=== PATIENT | male | born 1940 | race Caucasian/White ===

== ENCOUNTER 2019-05-08 12:45 | Inpatient (IN) | payer MEDICARE ==
[~2019-05-08] VITALS: Ht 177.8 cm; Wt 96.7 kg
--- NOTE | 2019-05-08 12:55 | NUR ---
BIB [facility]. Two days ago, states patient reported generalized fatigue and "not feeling well". The next day, he slept most of the day. Started this AM he could not walk and became nearly no verbal. In ED, oriented to self and place. Otherwise, difficulty following commands well enough to perform neuro exam. +decorticate posturing RUE. EKG done. Placed on NIBP, pulse ox and cardiac cath lab manager. at bedside. Will continue to monitor.
--- NOTE | 2019-05-08 13:20 | NUR ---
Placed on droplet precautions for R/O meningitis.
[2019-05-08] MEDS ORDERED: SODIUM CHLORIDE 0.9% 1,000ML IVBOLUS ONE ×2 (13:30→16:00)
[2019-05-08] MEDS ORDERED: ACETAMINOPHEN 650 MG SUPP PR ONE (13:30)
--- NOTE | 2019-05-08 13:37 | NUR ---
TASK RN: STRAIGHT CATHERIZED FOR 600ML OF CONCENTRATED URINE-SAMPLE SENT TO LAB LAB AT BEDSIDE-OBTAINED BLOOD CULTURES ONCE BLOOD/URINE COMPLETE- PATIENT TO CT SCAN
[2019-05-08] MEDS ORDERED: ACETAMINOPHEN 325 MG SUPP ONE (13:40)
--- NOTE | 2019-05-08 13:50 | NUR ---
Tylenol admin. Patient had BM x 1. Patient cleaned and linens changed. Repositioned for comfort.
[2019-05-08 13:51] LABS: BASOPHILS # (AUTO) 0.02 x10^3/uL (0-0.1); BASOPHILS % (AUTO) 0 % (0-1); EOSINOPHILS % (AUTO) 0 % (1-7); LYMPHOCYTES # (AUTO) 0.48 x10^3/uL (1-3.4); LYMPHOCYTES % (AUTO) 10 % (22-44); MD NO; MEAN CORPUSCULAR HEMOGLOBIN 32.4 pg (27.5-34.5); MEAN CORPUSCULAR HGB CONC 33.9 g/dL (33.2-36.2); MEAN CORPUSCULAR VOLUME 95.5 fL (81-97); MEAN PLATELET VOLUME 7.9 fL (7.4-10.4); MONOCYTES # (AUTO) 0.18 x10^3/uL (0.2-0.8); MONOCYTES % (AUTO) 4 % (2-9); NEUTROPHILS # (AUTO) 4.19 x10^3/uL (1.8-6.8); NEUTROPHILS % (AUTO) 86 % (42-75); PLATELET COUNT 183 x10^3/uL (130-400); RED BLOOD COUNT 5.17 x10^6/uL (4.38-5.82)
[2019-05-08 13:55] LABS: INTERNATIONAL NORMALIZED RATIO 1.02 (0.93-1.1); PROTHROMBIN TIME 10.7 Seconds (9.6-11.5)
[2019-05-08 13:58] LABS: MICROSCOPIC INDICATED
[2019-05-08 13:59] LABS: ALBUMIN 3.7 g/dL (3.4-5.0); ANION GAP 9 mmol/L (5-15); CALCIUM 8.7 mg/dL (8.5-10.1); CHLORIDE 96 mmol/L (98-107)
[2019-05-08 13:59] LABS: CULTURE INDICATED? YES
[2019-05-08 14:02] LABS: ALANINE AMINOTRANSFERASE 221 U/L (12-78); ALKALINE PHOSPHATASE 58 U/L (45-117); CREATININE 1.82 mg/dL (0.7-1.3); TOTAL PROTEIN 7.7 g/dL (6.4-8.2)
[2019-05-08] MEDS ORDERED: EMPA10TA PO (14:10)
[2019-05-08] MEDS ORDERED: GLIP5TAB10 PO (14:10)
[2019-05-08] MEDS ORDERED: DEXAMETHASONE 4 MG/ML, 5ML ONE (14:24)
[2019-05-08] MEDS ORDERED: CEFTRIAXONE PMX 1GM/50ML 50 ML ONE (14:24)
--- NOTE | 2019-05-08 14:28 | NUR ---
Rocephin and decadron admin. No other needs at this time.
[2019-05-08] MEDS ORDERED: VANCOMYCIN PER PHARMACY MC PRN ×2 (14:30→16:30)
[2019-05-08] MEDS ORDERED: VANCOMYCIN 1,800 MG in SODIUM CHLORIDE 0.9% 250 ML IV ONE (14:30)
[2019-05-08] MEDS ORDERED: AMPICILLIN 2 GM in SODIUM CHLORIDE 0.9% 100 ML IV SCH (14:30)
[2019-05-08] MEDS ORDERED: DEXAMETHASONE 4 MG/ML, 1ML IVPush ONE (14:30)
[2019-05-08] MEDS ORDERED: PHARMACOKINETIC CONSULTATION MC ONE (14:30)
[2019-05-08] MEDS ORDERED: CEFTRIAXONE PMX 1GM/50ML 50 ML IV ONE (14:30)
--- NOTE | 2019-05-08 15:02 | NUR ---
TASK RN: RECTAL TEMP OBTAINED. SET UP FOR LP AT BEDSIDE AND CONSENT SIGNED BY . PT AWAKE, WILL MAKE EYE CONTACT WITH RN, RESPONSIVE TO DISCOMFORT. PT W NO VERBAL COMMUNICATION AND IS NOT FOLLOWING COMMANDS. BP/SPO2/ECG MONITORING IN PLACE. SO AT BEDSIDE AND UPDATED TO POC.
[2019-05-08] MEDS ORDERED: FENTANYL PF 100 MCG/2ML ONE ×2 (15:23→17:26)
[2019-05-08] MEDS ORDERED: FENTANYL PF 100 MCG/2ML IVPush ONE (15:30)
--- NOTE | 2019-05-08 16:10 | NUR ---
Unable to obtain LP at bedside. Plan is for LP in IR.
[2019-05-08] MEDS ORDERED: LORazepam 2 MG/ML, 1ML ONE (16:20)
[2019-05-08] MEDS ORDERED: CEFTRIAXONE PMX 2GM/50ML 50 ML IV SCH (16:30)
[2019-05-08] MEDS ORDERED: ONDANSETRON 2MG/ML, 2ML IVPush PRN (16:30)
[2019-05-08] MEDS ORDERED: BISACODYL 10 MG SUPP PR PRN (16:30)
[2019-05-08] MEDS ORDERED: LABETALOL 5MG/ML, 20ML IVPush PRN (16:30)
[2019-05-08] MEDS ORDERED: LORazepam 2 MG/ML, 1ML IVPush ONE (16:30)
[2019-05-08] MEDS ORDERED: POLYETHYLENE GLYCOL 17 GM PACKET PO PRN (16:30)
--- NOTE | 2019-05-08 16:40 | NUR ---
Patient pulling at lines and becoming more agitated. Ativan admin. US at bedside. Second IV started.
--- NOTE | 2019-05-08 17:00 | NUR ---
Heparin held for LP
[2019-05-08] MEDS ORDERED: LIDOCAINE 1%, 10ML ONE (17:11)
--- NOTE | 2019-05-08 17:32 | NUR ---
Patient to IR for LP.
[2019-05-08] MEDS ORDERED: MIDAZOLAM 1 MG/ML, 2ML ONE (17:46)
--- NOTE | 2019-05-08 18:51 | NUR ---
PT TAKEN TO RADIOLOGY AT APPROX 1730 FOR A SPINAL TAP UNDER IMAGING PERFORMED BY DR PHILIP TYLER PT PLACED PRONE ON XR TABLE DR REQUESTED A TOTAL OF 1.5 OF VERSED AND 50 OF FENT TO BE GIVEN DURING PROCEDURE PT REMAINED CONSCIOUS RESONDING TO VERBAL THROUGH OUT PROCEDURE CUT OFF WORKER INPLACE AND SATS REMAINED > 95% DURING THE TAP HEART RATE CONTINUED IN THE 80 THE ENTIRE TIME PT RETURNED TO THE ED PT CLEANED OF STOOL IN XR
--- NOTE | 2019-05-08 18:54 | NUR ---
Back from IR and transferred to CCU.
[2019-05-08 19:08] LABS: GLUCOSE, CSF 129 mg/dL (40-80); TOTAL PROTEIN,CSF 89 mg/dL (15-45)
--- NOTE | 2019-05-08 19:18 | NUR ---
WRITTEN ORDERS FOR FENT AND VERSED REC FORM DR TYLER UNABLE TO PLACE IN COMPUTOR DR TYLER NOT IN THE SYSTEM WRITTEN ORDERS SENT TO CCU THIS REPORTED TO CCU RN
[2019-05-08] MEDS ORDERED: PHARMACOKINETIC MONITORING MC PRN (19:30)
[2019-05-08] MEDS: SODIUM CHLORIDE 0.9% 1,000 ML IV SCH (19:47)
[2019-05-08] MEDS: PIPERACILLIN/TAZO/PMX 3.375GM 50 ML IV SCH (19:48)
[2019-05-08] MEDS: HEPARIN 5,000 UNITS/ML, 1ML SQ SCH (19:48)
[2019-05-08] MEDS: ACYCLOVIR 900 MG in SODIUM CHLORIDE 0.9% 250 ML IV SCH (20:17)
[2019-05-08] MEDS ORDERED: INSULIN LISPRO 100 UNITS/ML, PEN SQ-INSULIN SCH (21:00)
[2019-05-08] MEDS: CEFTRIAXONE PMX 2GM/50ML 50 ML IV SCH (21:16)
[2019-05-08] MEDS ORDERED: MAGNESIUM SULFATE PMX 2GM/50ML 50 ML IV ONE (21:30)
[2019-05-09] MEDS: PIPERACILLIN/TAZO/PMX 3.375GM 50 ML IV SCH ×4 (02:05→20:48)
[2019-05-09] MEDS: INSULIN LISPRO 100 UNITS/ML, PEN SQ-INSULIN SCH ×4 (02:12→20:49)
[2019-05-09] MEDS: SODIUM CHLORIDE 0.9% 1,000 ML IV SCH ×3 (03:55→20:51)
[2019-05-09] MEDS: ACYCLOVIR 900 MG in SODIUM CHLORIDE 0.9% 250 ML IV SCH ×2 (03:55→12:00)
[2019-05-09] MEDS: HEPARIN 5,000 UNITS/ML, 1ML SQ SCH ×3 (03:56→20:49)
[2019-05-09 04:31] LABS: ALANINE AMINOTRANSFERASE 248 U/L (12-78); ALBUMIN 2.8 g/dL (3.4-5.0); ANION GAP 7 mmol/L (5-15); CALCIUM 7.8 mg/dL (8.5-10.1); CHLORIDE 106 mmol/L (98-107); CREATININE 1.48 mg/dL (0.7-1.3)
[2019-05-09 04:34] LABS: ALKALINE PHOSPHATASE 46 U/L (45-117); BILIRUBIN,TOTAL 0.6 mg/dL (0.2-1.0); TOTAL PROTEIN 6.2 g/dL (6.4-8.2)
[2019-05-09 04:58] LABS: MEAN CORPUSCULAR HEMOGLOBIN 32.7 pg (27.5-34.5); MEAN CORPUSCULAR VOLUME 96.1 fL (81-97); MEAN PLATELET VOLUME 8.1 fL (7.4-10.4); PLATELET COUNT 158 x10^3/uL (130-400); RED BLOOD COUNT 4.73 x10^6/uL (4.38-5.82); RED CELL DISTRIBUTION WIDTH 13.1 % (9.4-14.8)
[2019-05-09 05:19] LABS: BASOPHILS # (AUTO) 0.01 x10^3/uL (0-0.1); BASOPHILS % (AUTO) 0 % (0-1); EOSINOPHILS % (AUTO) 0 % (1-7); LYMPHOCYTES # (AUTO) 0.55 x10^3/uL (1-3.4); LYMPHOCYTES % (AUTO) 20 % (22-44); MD SCAN; MONOCYTES # (AUTO) 0.13 x10^3/uL (0.2-0.8); MONOCYTES % (AUTO) 5 % (2-9); NEUTROPHILS # (AUTO) 2.08 x10^3/uL (1.8-6.8); NEUTROPHILS % (AUTO) 75 % (42-75)
[2019-05-09] MEDS: SENNA/DOCUSATE TABLET PO SCH (07:38)
[2019-05-09] MEDS ORDERED: ACETAMINOPHEN 650 MG SUPP PR PRN (09:30)
[2019-05-09] MEDS: CEFTRIAXONE PMX 2GM/50ML 50 ML IV SCH ×2 (10:16→20:48)
[2019-05-09] MEDS ORDERED: VANCOMYCIN 1,900 MG in SODIUM CHLORIDE 0.9% 250 ML IV SCH (10:30)
[2019-05-09] MEDS ORDERED: VANCOMYCIN 1,700 MG in SODIUM CHLORIDE 0.9% 250 ML IV SCH (16:00)
[2019-05-09] MEDS: ACETAMINOPHEN 325 MG TABLET PO PRN ×2 (16:05→23:30)
[2019-05-09] MEDS: SODIUM CHLORIDE 0.9% IVPB SCH (17:14)
[2019-05-09] MEDS: GANCICLOVIR IVPB SCH (17:14)
[2019-05-09] MEDS ORDERED: FAMOTIDINE 20 MG/2 ML IVPush SCH (22:00)
[2019-05-09] MEDS ORDERED: PHARMACY MAY ADJ FOR RENAL FX MC PRN (22:00)
[2019-05-10 02:18] LABS: CLOSTRIDIUM DIFFICILE ANTIGEN NEGATIVE; CLOSTRIDIUM DIFFICILE TOXIN NEGATIVE (Negative)
[2019-05-10] MEDS: PIPERACILLIN/TAZO/PMX 3.375GM 50 ML IV SCH ×4 (02:44→20:32)
[2019-05-10] MEDS: INSULIN LISPRO 100 UNITS/ML, PEN SQ-INSULIN SCH ×4 (03:00→20:44)
[2019-05-10 04:26] LABS: BASOPHILS % (AUTO) 0 % (0-1); EOSINOPHILS % (AUTO) 0 % (1-7); LYMPHOCYTES # (AUTO) 0.69 x10^3/uL (1-3.4); LYMPHOCYTES % (AUTO) 22 % (22-44); MD NO; MEAN CORPUSCULAR HEMOGLOBIN 32.7 pg (27.5-34.5); MEAN CORPUSCULAR VOLUME 96.3 fL (81-97); MONOCYTES # (AUTO) 0.14 x10^3/uL (0.2-0.8); MONOCYTES % (AUTO) 4 % (2-9); NEUTROPHILS # (AUTO) 2.35 x10^3/uL (1.8-6.8); NEUTROPHILS % (AUTO) 74 % (42-75); PLATELET COUNT 106 x10^3/uL (130-400); RED CELL DISTRIBUTION WIDTH 13.3 % (9.4-14.8)
[2019-05-10] MEDS: SODIUM CHLORIDE 0.9% IVPB SCH ×2 (04:27→16:24)
[2019-05-10] MEDS: GANCICLOVIR IVPB SCH ×2 (04:27→16:24)
[2019-05-10] MEDS: SODIUM CHLORIDE 0.9% 1,000 ML IV SCH (04:27)
[2019-05-10 04:28] LABS: ALBUMIN 2.6 g/dL (3.4-5.0); ANION GAP 7 mmol/L (5-15); CALCIUM 7.5 mg/dL (8.5-10.1); CHLORIDE 112 mmol/L (98-107)
[2019-05-10] MEDS: HEPARIN 5,000 UNITS/ML, 1ML SQ SCH ×3 (04:28→20:32)
[2019-05-10 04:30] LABS: ALANINE AMINOTRANSFERASE 305 U/L (12-78); ALKALINE PHOSPHATASE 41 U/L (45-117); BILIRUBIN,TOTAL 0.3 mg/dL (0.2-1.0); CREATININE 1.29 mg/dL (0.7-1.3); TOTAL PROTEIN 5.8 g/dL (6.4-8.2); VANCOMYCIN,RANDOM 14.3 mcg/mL
[2019-05-10] MEDS: SENNA/DOCUSATE TABLET PO SCH (09:00)
[2019-05-10] MEDS ORDERED: SODIUM BICARBONATE 8.4% 100 MEQ in DEXTROSE 5% 1,000 ML IV SCH (10:00)
[2019-05-10] MEDS ORDERED: SENNA/DOCUSATE TABLET PO PRN (10:00)
[2019-05-10] MEDS: ACETYLCYSTEINE 600 MG CAPSULE PO SCH ×3 (10:02→21:00)
[2019-05-10] MEDS ORDERED: GADOTERATE 10 MMOL/20 ML SYR ONE (11:47)
[2019-05-10 14:58] LABS: % IRON SATURATION 15 % (20-55); ANION GAP 8 mmol/L (5-15); CALCIUM 6.9 mg/dL (8.5-10.1); CHLORIDE 108 mmol/L (98-107); IRON LEVEL 32 mcg/dL (65-175); TOTAL IRON BINDING CAPACITY 219 mcg/dL (250-450)
[2019-05-10 15:00] LABS: CREATINE KINASE, TOTAL 479 U/L (39-308)
[2019-05-10] MEDS: MORPHINE SULFATE 4 MG/ML, 1ML IVPush PRN (15:16)
[2019-05-10] MEDS: NS + 40MEQ KCL 1,000 ML IV SCH (19:50)
[2019-05-10] MEDS: FAMOTIDINE 20 MG/2 ML IVPush SCH (20:32)
[2019-05-10] MEDS: IBUPROFEN 800 MG TABLET PO PRN ×2 (20:32→22:45)
[2019-05-11] MEDS: PIPERACILLIN/TAZO/PMX 3.375GM 50 ML IV SCH ×4 (02:35→20:23)
[2019-05-11] MEDS: INSULIN LISPRO 100 UNITS/ML, PEN SQ-INSULIN SCH ×5 (02:40→20:28)
[2019-05-11] MEDS: NS + 40MEQ KCL 1,000 ML IV SCH ×3 (02:42→21:21)
[2019-05-11 04:31] LABS: MEAN CORPUSCULAR HEMOGLOBIN 32.4 pg (27.5-34.5); MEAN CORPUSCULAR HGB CONC 33.8 g/dL (33.2-36.2); MEAN CORPUSCULAR VOLUME 95.8 fL (81-97); RED BLOOD COUNT 4.88 x10^6/uL (4.38-5.82); RED CELL DISTRIBUTION WIDTH 13.1 % (9.4-14.8)
[2019-05-11 04:43] LABS: CHLORIDE 108 mmol/L (98-107)
[2019-05-11 04:44] LABS: BASOPHILS # (AUTO) 0.01 x10^3/uL (0-0.1); BASOPHILS % (AUTO) 0 % (0-1); EOSINOPHILS # (AUTO) 0.01 x10^3/uL (0-0.4); EOSINOPHILS % (AUTO) 0 % (1-7); LYMPHOCYTES # (AUTO) 0.92 x10^3/uL (1-3.4); LYMPHOCYTES % (AUTO) 23 % (22-44); MD SCAN; MEAN PLATELET VOLUME 8.3 fL (7.4-10.4); MONOCYTES # (AUTO) 0.37 x10^3/uL (0.2-0.8); MONOCYTES % (AUTO) 9 % (2-9); NEUTROPHILS % (AUTO) 68 % (42-75); PLATELET COUNT 97 x10^3/uL (130-400)
[2019-05-11] MEDS: GANCICLOVIR IVPB SCH ×2 (04:44→16:34)
[2019-05-11] MEDS: HEPARIN 5,000 UNITS/ML, 1ML SQ SCH ×3 (04:44→20:22)
[2019-05-11] MEDS: SODIUM CHLORIDE 0.9% IVPB SCH ×2 (04:44→16:34)
[2019-05-11 04:51] LABS: ALANINE AMINOTRANSFERASE 185 U/L (12-78); ALBUMIN 2.5 g/dL (3.4-5.0); ALKALINE PHOSPHATASE 41 U/L (45-117); ANION GAP 6 mmol/L (5-15); BILIRUBIN,TOTAL 0.5 mg/dL (0.2-1.0); CALCIUM 7.2 mg/dL (8.5-10.1); CREATINE KINASE, TOTAL 815 U/L (39-308); CREATININE 1.42 mg/dL (0.7-1.3); TOTAL PROTEIN 5.6 g/dL (6.4-8.2)
[2019-05-11] MEDS: ACETYLCYSTEINE 600 MG CAPSULE PO SCH ×3 (08:49→20:37)
[2019-05-11] MEDS: LOPERAMIDE 2 MG CAPSULE PO PRN ×2 (08:49→20:23)
[2019-05-11] MEDS ORDERED: MAGNESIUM SULFATE PMX 2GM/50ML 50 ML IVPB ONE (09:00)
[2019-05-11] MEDS ORDERED: POTASSIUM PHOSPHATE 22 MEQ in SODIUM CHLORIDE 0.9% 250 ML IV ONE (09:30)
[2019-05-11 11:58] VITALS: BP 121/69
[2019-05-11] MEDS: IBUPROFEN 800 MG TABLET PO PRN (12:09)
[2019-05-11] MEDS: FAMOTIDINE 20 MG/2 ML IVPush SCH (20:23)
[2019-05-12] MEDS: PIPERACILLIN/TAZO/PMX 3.375GM 50 ML IV SCH ×2 (02:16→08:11)
[2019-05-12] MEDS: HEPARIN 5,000 UNITS/ML, 1ML SQ SCH ×3 (04:06→20:34)
[2019-05-12] MEDS: GANCICLOVIR IVPB SCH (04:07)
[2019-05-12] MEDS: SODIUM CHLORIDE 0.9% IVPB SCH (04:07)
[2019-05-12 04:44] LABS: ALANINE AMINOTRANSFERASE 127 U/L (12-78); ALBUMIN 2.3 g/dL (3.4-5.0); ANION GAP 5 mmol/L (5-15); CALCIUM 7.2 mg/dL (8.5-10.1); CHLORIDE 112 mmol/L (98-107); CREATININE 1.29 mg/dL (0.7-1.3)
[2019-05-12 04:46] LABS: ALKALINE PHOSPHATASE 49 U/L (45-117); BILIRUBIN,TOTAL 0.5 mg/dL (0.2-1.0); TOTAL PROTEIN 5.6 g/dL (6.4-8.2)
[2019-05-12 04:48] LABS: BASOPHILS # (AUTO) 0.02 x10^3/uL (0-0.1); BASOPHILS % (AUTO) 0 % (0-1); EOSINOPHILS # (AUTO) 0.06 x10^3/uL (0-0.4); EOSINOPHILS % (AUTO) 1 % (1-7); LYMPHOCYTES # (AUTO) 0.87 x10^3/uL (1-3.4); LYMPHOCYTES % (AUTO) 17 % (22-44); MD NO; MEAN CORPUSCULAR HEMOGLOBIN 32.4 pg (27.5-34.5); MEAN CORPUSCULAR HGB CONC 33.7 g/dL (33.2-36.2); MEAN CORPUSCULAR VOLUME 96.3 fL (81-97); MEAN PLATELET VOLUME 8.2 fL (7.4-10.4); MONOCYTES # (AUTO) 0.32 x10^3/uL (0.2-0.8); MONOCYTES % (AUTO) 6 % (2-9); NEUTROPHILS % (AUTO) 76 % (42-75); PLATELET COUNT 103 x10^3/uL (130-400); RED BLOOD COUNT 4.53 x10^6/uL (4.38-5.82); RED CELL DISTRIBUTION WIDTH 13.5 % (9.4-14.8)
[2019-05-12] MEDS ORDERED: SODIUM PHOSPHATE 20 MMOL in SODIUM CHLORIDE 0.9% 500 ML IV ONE (06:00)
[2019-05-12] MEDS: NS + 40MEQ KCL 1,000 ML IV SCH (06:03)
[2019-05-12] MEDS: INSULIN LISPRO 100 UNITS/ML, PEN SQ-INSULIN SCH ×4 (07:46→20:34)
[2019-05-12] MEDS ORDERED: SODIUM CHLORIDE 0.9% 1,000 ML IV SCH (10:00)
[2019-05-12] MEDS ORDERED: FUROSEMIDE 40 MG/4 ML IV ONE (10:00)
[2019-05-12] MEDS ORDERED: ACETAMINOPHEN 325 MG TABLET PO PRN (10:30)
[2019-05-12 13:35] VITALS: BP 128/79
[2019-05-12] MEDS ORDERED: GANCICLOVIR IVPB SCH (16:00)
[2019-05-12] MEDS ORDERED: SODIUM CHLORIDE 0.9% IVPB SCH (16:00)
[2019-05-12] MEDS ORDERED: SODIUM CHLORIDE 0.9% IVPB ONE (18:00)
[2019-05-12] MEDS ORDERED: GANCICLOVIR IVPB ONE (18:00)
[2019-05-12 19:49] VITALS: BP 142/93
[2019-05-12] MEDS: FAMOTIDINE 20 MG/2 ML IVPush SCH (20:34)
[2019-05-13 01:50] VITALS: BP 149/91
[2019-05-13] MEDS ORDERED: GANCICLOVIR IVPB PRN (04:00)
[2019-05-13] MEDS: HEPARIN 5,000 UNITS/ML, 1ML SQ SCH ×3 (04:00→20:23)
[2019-05-13] MEDS ORDERED: SODIUM CHLORIDE 0.9% IVPB PRN (04:00)
[2019-05-13 05:32] LABS: ALANINE AMINOTRANSFERASE 97 U/L (12-78); ALBUMIN 2.4 g/dL (3.4-5.0); ANION GAP 7 mmol/L (5-15); CALCIUM 8.2 mg/dL (8.5-10.1); CHLORIDE 108 mmol/L (98-107); CREATININE 1.29 mg/dL (0.7-1.3)
[2019-05-13 05:35] LABS: ALKALINE PHOSPHATASE 83 U/L (45-117); BILIRUBIN,TOTAL 1.1 mg/dL (0.2-1.0); CREATINE KINASE, TOTAL 199 U/L (39-308); TOTAL PROTEIN 6.2 g/dL (6.4-8.2)
[2019-05-13 05:38] LABS: BASOPHILS # (AUTO) 0.01 x10^3/uL (0-0.1); BASOPHILS % (AUTO) 0 % (0-1); EOSINOPHILS # (AUTO) 0.05 x10^3/uL (0-0.4); EOSINOPHILS % (AUTO) 1 % (1-7); LYMPHOCYTES # (AUTO) 0.95 x10^3/uL (1-3.4); LYMPHOCYTES % (AUTO) 18 % (22-44); MD NO; MEAN CORPUSCULAR HEMOGLOBIN 32.2 pg (27.5-34.5); MEAN CORPUSCULAR HGB CONC 33.6 g/dL (33.2-36.2); MEAN CORPUSCULAR VOLUME 95.8 fL (81-97); MEAN PLATELET VOLUME 8.1 fL (7.4-10.4); MONOCYTES # (AUTO) 0.62 x10^3/uL (0.2-0.8); MONOCYTES % (AUTO) 12 % (2-9); NEUTROPHILS # (AUTO) 3.57 x10^3/uL (1.8-6.8); NEUTROPHILS % (AUTO) 69 % (42-75); PLATELET COUNT 126 x10^3/uL (130-400); RED BLOOD COUNT 4.51 x10^6/uL (4.38-5.82); RED CELL DISTRIBUTION WIDTH 13.1 % (9.4-14.8)
[2019-05-13] MEDS: ACYCLOVIR 1,000 MG in SODIUM CHLORIDE 0.9% 250 ML IV SCH ×2 (06:00→17:46)
[2019-05-13] MEDS: INSULIN LISPRO 100 UNITS/ML, PEN SQ-INSULIN SCH ×4 (07:35→20:22)
[2019-05-13 08:02] VITALS: BP 151/92
[2019-05-13] MEDS: MORPHINE SULFATE 4 MG/ML, 1ML IVPush PRN ×3 (08:29→22:47)
[2019-05-13 15:21] VITALS: BP 116/78
[2019-05-13] MEDS ORDERED: SODIUM CHLORIDE 0.9% 1,000 ML IV SCH (16:00)
[2019-05-13 17:25] LABS: MICROSCOPIC INDICATED
[2019-05-13 17:26] LABS: CULTURE INDICATED? YES
[2019-05-13] MEDS ORDERED: MAGNESIUM SULFATE 6 GM in SODIUM CHLORIDE 0.9% 250 ML IV ONE (19:00)
[2019-05-13] MEDS ORDERED: POTASSIUM CHLORIDE 40 MEQ in SODIUM CHLORIDE 0.9% 500 ML IV ONE (19:00)
[2019-05-13 19:45] VITALS: BP 119/74
[2019-05-13] MEDS: FAMOTIDINE 20 MG/2 ML IVPush SCH (20:24)
[2019-05-13] MEDS ORDERED: INSULIN GLARGINE 100 UNITS/ML, PEN SQ-INSULIN SCH (21:00)
[2019-05-13] MEDS ORDERED: POTASSIUM PHOSPHATE 44 MEQ in SODIUM CHLORIDE 0.9% 500 ML IV ONE (23:30)
[2019-05-14 01:34] VITALS: BP 144/93
[2019-05-14] MEDS: HEPARIN 5,000 UNITS/ML, 1ML SQ SCH ×2 (04:00→13:01)
[2019-05-14 05:57] LABS: BASOPHILS # (AUTO) 0.03 x10^3/uL (0-0.1); BASOPHILS % (AUTO) 1 % (0-1); EOSINOPHILS # (AUTO) 0.11 x10^3/uL (0-0.4); EOSINOPHILS % (AUTO) 2 % (1-7); LYMPHOCYTES # (AUTO) 1.07 x10^3/uL (1-3.4); LYMPHOCYTES % (AUTO) 21 % (22-44); MD NO; MEAN CORPUSCULAR HEMOGLOBIN 32.2 pg (27.5-34.5); MEAN CORPUSCULAR HGB CONC 33.7 g/dL (33.2-36.2); MEAN CORPUSCULAR VOLUME 95.5 fL (81-97); MEAN PLATELET VOLUME 7.9 fL (7.4-10.4); MONOCYTES % (AUTO) 8 % (2-9); NEUTROPHILS # (AUTO) 3.45 x10^3/uL (1.8-6.8); NEUTROPHILS % (AUTO) 68 % (42-75); PLATELET COUNT 194 x10^3/uL (130-400); RED BLOOD COUNT 4.29 x10^6/uL (4.38-5.82); RED CELL DISTRIBUTION WIDTH 13.1 % (9.4-14.8)
[2019-05-14 06:07] LABS: ALANINE AMINOTRANSFERASE 72 U/L (12-78); ALBUMIN 2.3 g/dL (3.4-5.0); ANION GAP 5 mmol/L (5-15); CALCIUM 8.2 mg/dL (8.5-10.1); CHLORIDE 111 mmol/L (98-107)
[2019-05-14 06:10] LABS: ALKALINE PHOSPHATASE 103 U/L (45-117); BILIRUBIN,TOTAL 0.8 mg/dL (0.2-1.0); CREATININE 1.31 mg/dL (0.7-1.3); TOTAL PROTEIN 6.1 g/dL (6.4-8.2)
[2019-05-14] MEDS: ACYCLOVIR 1,000 MG in SODIUM CHLORIDE 0.9% 250 ML IV SCH (06:18)
[2019-05-14] MEDS: INSULIN LISPRO 100 UNITS/ML, PEN SQ-INSULIN SCH ×2 (07:15→11:23)
[2019-05-14 07:20] VITALS: BP 148/90
[2019-05-14] MEDS ORDERED: ONDA4VIA60 IVPush (12:13)
[2019-05-14] MEDS ORDERED: LOPE2CAP PO (12:13)
[2019-05-14] MEDS ORDERED: MORP4VIA IVPush (12:13)
[2019-05-14] MEDS ORDERED: INSU100I13 SQ-INSULIN (12:13)
[2019-05-14] MEDS ORDERED: HEPA50002 SQ (12:13)
[2019-05-14] MEDS ORDERED: acyclovir IV (12:13)
[2019-05-14] MEDS ORDERED: Pharmacy May Adj For Renal Fx MC (12:13)
[2019-05-14] MEDS ORDERED: INSU100I11 SQ-INSULIN (12:13)
[2019-05-14] MEDS ORDERED: FAMO20VI3 IVPush (12:13)
[2019-05-14] MEDS ORDERED: LABE5VIA13 IVPush (12:13)
[2019-05-14 13:20] VITALS: BP 161/92
[2019-05-14] MEDS ORDERED: SODIUM CHLORIDE 0.9% 1,000 ML IV SCH (16:00)
== END 2019-05-14 15:42 | DRG 871 ==
LOC: ED 16:07 → EDIP 16:08 → ED 16:48 → CCU 18:45 → 3N 05-12 11:19
PROVIDERS: ADMIT Internal Medicine; ATTEND Internal Medicine
PROC: 009U3ZX Drainage of Spinal Canal, Percutaneous Approach, Diagnostic (ICD-10-PCS; principal; 2019-05-08)
PROC: B01B1ZZ Fluoroscopy of Spinal Cord using Low Osmolar Contrast (ICD-10-PCS; 2019-05-08)
PROC: 0T9B70Z Drainage of Bladder with Drainage Device, Via Natural or Artificial Opening (ICD-10-PCS; 2019-05-08)
DX: A41.9 Sepsis, unspecified organism (principal); J96.00 Acute respiratory failure, unspecified whether with hypoxia or hypercapnia; G93.41 Metabolic encephalopathy; B00.4 Herpesviral encephalitis; E43 Unspecified severe protein-calorie malnutrition; G03.9 Meningitis, unspecified; J96.01 Acute respiratory failure with hypoxia; N17.0 Acute kidney failure with tubular necrosis; E87.1 Hypo-osmolality and hyponatremia; B17.9 Acute viral hepatitis, unspecified; K50.90 Crohn's disease, unspecified, without complications; N39.0 Urinary tract infection, site not specified; J32.0 Chronic maxillary sinusitis; R65.20 Severe sepsis without septic shock; B00.7 Disseminated herpesviral disease; D50.9 Iron deficiency anemia, unspecified; D69.59 Other secondary thrombocytopenia; D70.9 Neutropenia, unspecified; E11.9 Type 2 diabetes mellitus without complications; E83.39 Other disorders of phosphorus metabolism; E87.70 Fluid overload, unspecified; F03.90 Unspecified dementia, unspecified severity, without behavioral disturbance, psychotic disturbance, mood disturbance, and anxiety; G89.29 Other chronic pain; G93.89 Other specified disorders of brain; I10 Essential (primary) hypertension; K75.81 Nonalcoholic steatohepatitis (NASH); T37.5X5A Adverse effect of antiviral drugs, initial encounter; Z78.1 Physical restraint status; Z87.442 Personal history of urinary calculi; Z79.899 Other long term (current) drug therapy; Y92.89 Other specified places as the place of occurrence of the external cause
CPT/HCPCS: 36415; 36600; 62270; 70450; 70553; 71045; 74018; 74177; 76700; 77003; 80048; 80053; 80074; 80202; 81001; 82140; 82550; 82803; 82945; 82962; 83540; 83550; 83605; 83690; 83735; 84100; 84145; 84157; 84443; 85025; 85610; 85730; 87040; 87070; 87077; 87081; 87086; 87186; 87205; 87324; 87529; 89051; 93005; 95819; 96365; G0378; J0133; J0290; J0696; J1100; J1644; J1940; J2543; J3010; J3370; J3475; J3480; J7070; A9575; J1570; J1815; J2060; J2270; J3490; J7030; J7040; J7050

== ENCOUNTER 2020-02-04 16:42 | Inpatient (IN) | payer MEDICARE ==
[~2020-02-04] VITALS: Ht 175.3 cm; Wt 94.0 kg
[~2020-02-04 16:42] MED LIST: EMPA10TA PO; FAMO20VI3 IVPush; GLIP5TAB10 PO; HEPA50002 SQ; INSU100I11 SQ-INSULIN; INSU100I13 SQ-INSULIN; LABE5VIA13 IVPush; LOPE2CAP PO; MORP4VIA IVPush; ONDA4VIA60 IVPush; Pharmacy May Adj For Renal Fx MC; acyclovir IV
[2020-02-04 17:55] LABS: BASOPHILS # (AUTO) 0.04 x10^3/uL (0-0.1); BASOPHILS % (AUTO) 0 % (0-1); EOSINOPHILS # (AUTO) 0.19 x10^3/uL (0-0.4); EOSINOPHILS % (AUTO) 2 % (1-7); LYMPHOCYTES # (AUTO) 1.49 x10^3/uL (1-3.4); LYMPHOCYTES % (AUTO) 14 % (22-44); MD NO; MEAN CORPUSCULAR HGB CONC 33.4 g/dL (33.2-36.2); MEAN PLATELET VOLUME 7.7 fL (7.4-10.4); MONOCYTES # (AUTO) 1.04 x10^3/uL (0.2-0.8); MONOCYTES % (AUTO) 10 % (2-9); NEUTROPHILS # (AUTO) 8.04 x10^3/uL (1.8-6.8); NEUTROPHILS % (AUTO) 75 % (42-75); PLATELET COUNT 316 x10^3/uL (130-400); RED BLOOD COUNT 4.91 x10^6/uL (4.38-5.82); RED CELL DISTRIBUTION WIDTH 13.1 % (9.4-14.8)
[2020-02-04 18:04] LABS: ALANINE AMINOTRANSFERASE 20 U/L (12-78); ALBUMIN 2.7 g/dL (3.4-5.0); ANION GAP 9 mmol/L (5-15); CALCIUM 8.8 mg/dL (8.5-10.1); CHLORIDE 103 mmol/L (98-107); CREATININE 1.22 mg/dL (0.7-1.3)
[2020-02-04 18:06] LABS: ALKALINE PHOSPHATASE 70 U/L (45-117); BILIRUBIN,TOTAL 1.9 mg/dL (0.2-1.0); TOTAL PROTEIN 7.2 g/dL (6.4-8.2)
[2020-02-04] MEDS ORDERED: METHOCARBAMOL 500 MG TABLET PO PRN (19:30)
[2020-02-04] MEDS ORDERED: ACETAMINOPHEN 325 MG TABLET PO PRN (19:30)
[2020-02-04] MEDS ORDERED: POLYETHYLENE GLYCOL 17 GM PACKET PO PRN (19:30)
[2020-02-04] MEDS ORDERED: SODIUM CHLORIDE FLUSH 10ML SYR IVF PRN (19:30)
[2020-02-04] MEDS ORDERED: ONDANSETRON ODT 4 MG PO PRN (19:30)
[2020-02-04] MEDS ORDERED: BISACODYL 10 MG SUPP PR PRN (19:30)
[2020-02-04 21:00] VITALS: BP 143/86
[2020-02-04] MEDS: INSULIN LISPRO 100 UNITS/ML, PEN SQ-INSULIN SCH (21:00)
[2020-02-04] MEDS: SODIUM CHLORIDE FLUSH 10ML SYR IVF SCH (21:39)
[2020-02-04] MEDS ORDERED: GLIM4TAB8 PO (23:24)
[2020-02-04] MEDS ORDERED: LOPE-114 PO (23:40)
[2020-02-04] MEDS ORDERED: EMPA10TA PO (23:40)
[2020-02-04] MEDS ORDERED: ASPI-496 PO (23:40)
[2020-02-04] MEDS ORDERED: ATOR20TA37 PO (23:40)
[2020-02-05 00:03] VITALS: BP 135/80
[2020-02-05] MEDS ORDERED: MORPHINE SULFATE 4 MG/ML, 1ML ONE (01:48)
[2020-02-05] MEDS: morphine SULFATE 10 MG/ML, 1ML IVPush PRN (01:51)
[2020-02-05 06:20] LABS: BASOPHILS # (AUTO) 0.03 x10^3/uL (0-0.1); BASOPHILS % (AUTO) 0 % (0-1); EOSINOPHILS # (AUTO) 0.26 x10^3/uL (0-0.4); EOSINOPHILS % (AUTO) 3 % (1-7); LYMPHOCYTES # (AUTO) 1.78 x10^3/uL (1-3.4); LYMPHOCYTES % (AUTO) 17 % (22-44); MD NO; MEAN CORPUSCULAR HEMOGLOBIN 31.5 pg (27.5-34.5); MEAN CORPUSCULAR HGB CONC 33.6 g/dL (33.2-36.2); MEAN PLATELET VOLUME 7.9 fL (7.4-10.4); MONOCYTES # (AUTO) 1.07 x10^3/uL (0.2-0.8); MONOCYTES % (AUTO) 11 % (2-9); NEUTROPHILS # (AUTO) 7.07 x10^3/uL (1.8-6.8); NEUTROPHILS % (AUTO) 69 % (42-75); PLATELET COUNT 290 x10^3/uL (130-400); RED BLOOD COUNT 4.74 x10^6/uL (4.38-5.82); RED CELL DISTRIBUTION WIDTH 13.6 % (9.4-14.8)
[2020-02-05 06:28] LABS: ANION GAP 9 mmol/L (5-15); CALCIUM 9.1 mg/dL (8.5-10.1); CHLORIDE 104 mmol/L (98-107); CREATININE 0.98 mg/dL (0.7-1.3)
[2020-02-05] MEDS: INSULIN LISPRO 100 UNITS/ML, PEN SQ-INSULIN SCH ×3 (07:10→16:00)
[2020-02-05 07:17] VITALS: BP 137/89
[2020-02-05] MEDS: SODIUM CHLORIDE FLUSH 10ML SYR IVF SCH ×3 (07:19→23:30)
[2020-02-05] MEDS: SENNA/DOCUSATE TABLET PO SCH (07:19)
[2020-02-05] MEDS ORDERED: POTASSIUM CHLORIDE 20 MEQ TAB.ER.PRT PO ONE (09:30)
[2020-02-05] MEDS ORDERED: CHLORHEXIDINE 15 ML UDC ONE (13:18)
[2020-02-05] MEDS ORDERED: CHLORHEXIDINE 15 ML UDC MM ONE (13:30)
[2020-02-05] MEDS ORDERED: TRANEXAMIC ACID 100 MG/ML, 10ML ONE (14:21)
[2020-02-05] MEDS ORDERED: FENTANYL PF 250 MCG/5ML ONE ×2 (14:31→15:35)
[2020-02-05] MEDS ORDERED: EPHEDRINE 50 MG/ML, 1ML ONE (14:44)
[2020-02-05] MEDS ORDERED: PROPOFOL 10 MG/ML, 20ML ONE (14:44)
[2020-02-05] MEDS ORDERED: ONDANSETRON 2MG/ML, 2ML ONE (14:44)
[2020-02-05] MEDS ORDERED: DEXAMETHASONE 4 MG/ML, 1ML ONE (14:44)
[2020-02-05] MEDS ORDERED: SUCCINYLCHOLINE 20 MG/ML, 10ML ONE (14:44)
[2020-02-05] MEDS ORDERED: PHENYLEPHRINE 10 MG/ML ONE (14:44)
[2020-02-05] MEDS: GLIMEPIRIDE 4 MG TABLET PO SCH ×2 (16:00→23:30)
[2020-02-05] MEDS: LOPERAMIDE 2 MG CAPSULE PO SCH ×2 (16:00→21:00)
[2020-02-05] MEDS ORDERED: OXYcodone 5 MG/5 ML ORAL.SOL UDC ONE (16:53)
[2020-02-05] MEDS ORDERED: FENTANYL PF 100 MCG/2ML ONE (16:53)
[2020-02-05] MEDS ORDERED: ACETAMINOPHEN 325 MG TABLET PO PRN ×2 (17:00→18:30)
[2020-02-05] MEDS ORDERED: LABETALOL 5MG/ML, 20ML IV PRN (17:00)
[2020-02-05] MEDS ORDERED: HYDROmorphone 1 MG/ML, 1ML INJ IVPush PRN (17:00)
[2020-02-05] MEDS ORDERED: hydrALAzine 20 MG/ML, 1ML IV PRN (17:00)
[2020-02-05] MEDS ORDERED: PROMETHAZINE 25 MG/ML, 1ML IVPush PRN (17:00)
[2020-02-05] MEDS ORDERED: morphine SULFATE 10 MG/ML, 1ML IVPush PRN (17:00)
[2020-02-05] MEDS ORDERED: OXYcodone 5 MG/5 ML ORAL.SOL UDC PO PRN (17:00)
[2020-02-05] MEDS ORDERED: MEPERIDINE/PF 25MG/0.5ML IVPush PRN (17:00)
[2020-02-05] MEDS: FENTANYL PF 100 MCG/2ML IV PRN ×2 (17:05→17:15)
[2020-02-05 18:15] VITALS: BP 129/87
[2020-02-05] MEDS ORDERED: ONDANSETRON 2MG/ML, 2ML IV PRN (18:30)
[2020-02-05] MEDS ORDERED: HYDROmorphone 2 MG/ML, 1ML IVPush PRN (18:30)
[2020-02-05] MEDS ORDERED: HYDROcodone/APAP 5/325 TABLET PO PRN (18:30)
[2020-02-05] MEDS ORDERED: SENNA/DOCUSATE TABLET PO PRN (18:30)
[2020-02-05] MEDS ORDERED: BISACODYL 10 MG SUPP PR PRN (18:30)
[2020-02-05] MEDS ORDERED: DIPHENHYDRAMINE 25 MG CAPSULE PO PRN (18:30)
[2020-02-05] MEDS ORDERED: MAGNESIUM HYDROXIDE 8%, 30ML UDC PO PRN (18:30)
[2020-02-05] MEDS ORDERED: ALUMINUM/MAG/SIMETHICONE 30 ML UDC PO PRN (18:30)
[2020-02-05] MEDS: CEFAZOLIN PMX 2GM/50ML 50 ML IVPB SCH (23:29)
[2020-02-05] MEDS: ASPIRIN 81 MG TABLET EC PO SCH (23:31)
[2020-02-05] MEDS: DOCUSATE 100 MG CAPSULE PO SCH (23:31)
[2020-02-05] MEDS: D5%-LACTATED RINGERS 1,000 ML IV SCH (23:32)
[2020-02-06 00:28] VITALS: BP 131/83
[2020-02-06] MEDS: INSULIN LISPRO 100 UNITS/ML, PEN SQ-INSULIN SCH ×5 (01:43→21:23)
[2020-02-06 03:52] VITALS: BP 125/86
[2020-02-06 05:02] LABS: ALBUMIN 2.3 g/dL (3.4-5.0); ANION GAP 9 mmol/L (5-15); CALCIUM 8.4 mg/dL (8.5-10.1); CHLORIDE 102 mmol/L (98-107); CREATININE 1.08 mg/dL (0.7-1.3)
[2020-02-06 07:00] VITALS: BP 147/88
[2020-02-06] MEDS: CEFAZOLIN PMX 2GM/50ML 50 ML IVPB SCH (07:21)
[2020-02-06] MEDS: SODIUM CHLORIDE FLUSH 10ML SYR IVF SCH ×4 (08:16→20:52)
[2020-02-06] MEDS: D5%-LACTATED RINGERS 1,000 ML IV SCH (08:16)
[2020-02-06] MEDS: ASPIRIN 81 MG TABLET EC PO SCH ×2 (08:17→20:52)
[2020-02-06] MEDS: LOPERAMIDE 2 MG CAPSULE PO SCH ×3 (08:17→20:52)
[2020-02-06] MEDS: ATORVASTATIN 20 MG TABLET PO SCH (08:17)
[2020-02-06] MEDS: GLIMEPIRIDE 4 MG TABLET PO SCH ×3 (08:17→20:52)
[2020-02-06] MEDS: MULTIVITAMINS/MINERALS TABLET PO SCH (08:17)
[2020-02-06] MEDS: TEMPLATE NON-FORMULARY MED. (Empagliflozin (Jardiance) 10 MG) PO SCH (08:17)
[2020-02-06] MEDS: SENNA/DOCUSATE TABLET PO SCH (08:18)
[2020-02-06] MEDS: DOCUSATE 100 MG CAPSULE PO SCH ×2 (08:18→20:53)
[2020-02-06] MEDS ORDERED: ASPIRIN 81 MG TABLET EC PO SCH (09:00)
[2020-02-06] MEDS: GABAPENTIN 100 MG CAPSULE PO SCH ×2 (10:05→20:52)
[2020-02-06] MEDS: ACETAMINOPHEN 325 MG TABLET PO SCH ×3 (10:05→20:53)
[2020-02-06 13:06] VITALS: BP 115/73
[2020-02-06 18:45] VITALS: BP 108/63
[2020-02-07 00:30] VITALS: BP 100/56
[2020-02-07 06:59] VITALS: BP 119/71
[2020-02-07 07:30] LABS: MEAN CORPUSCULAR HEMOGLOBIN 30.7 pg (27.5-34.5); MEAN CORPUSCULAR HGB CONC 32.4 g/dL (33.2-36.2); MEAN PLATELET VOLUME 7.9 fL (7.4-10.4); PLATELET COUNT 248 x10^3/uL (130-400); RED BLOOD COUNT 4.12 x10^6/uL (4.38-5.82); RED CELL DISTRIBUTION WIDTH 13.8 % (9.4-14.8)
[2020-02-07] MEDS: SODIUM CHLORIDE FLUSH 10ML SYR IVF SCH ×4 (08:41→23:37)
[2020-02-07] MEDS: TEMPLATE NON-FORMULARY MED. (Empagliflozin (Jardiance) 10 MG) PO SCH (08:41)
[2020-02-07] MEDS: DOCUSATE 100 MG CAPSULE PO SCH ×2 (08:42→21:00)
[2020-02-07] MEDS: SENNA/DOCUSATE TABLET PO SCH (08:42)
[2020-02-07] MEDS: INSULIN LISPRO 100 UNITS/ML, PEN SQ-INSULIN SCH ×4 (08:46→23:36)
[2020-02-07 08:59] LABS: MD YES
[2020-02-07] MEDS: LOPERAMIDE 2 MG CAPSULE PO SCH ×3 (09:00→23:37)
[2020-02-07 09:02] LABS: <PLATELET ESTIMATE> ADEQUATE; <PLT MORPHOLOGY> NORMAL PLT MORPH; <RBC MORPHOLOGY> NORMAL; BAND#(MANUAL) 1.92 x10^3/uL; BANDS%(MANUAL) 13 % (0-7); EOS#(MANUAL) 0.15 x10^3/uL (0.0-0.4); EOS% (MANUAL) 1 % (1-7); LYMPH#(MANUAL) 0.89 x10^3/uL (1-3.4); LYMPHS% (MANUAL) 6 % (22-44); MONOS#(MANUAL) 0.44 x10^3/uL (0.3-2.7); MONOS% (MANUAL) 3 % (2-9); SEGS% (MANUAL) 77 % (42-75)
[2020-02-07] MEDS: ACETAMINOPHEN 325 MG TABLET PO SCH ×3 (10:36→23:36)
[2020-02-07] MEDS: GLIMEPIRIDE 4 MG TABLET PO SCH ×3 (10:37→23:36)
[2020-02-07] MEDS: GABAPENTIN 100 MG CAPSULE PO SCH ×2 (10:37→23:37)
[2020-02-07] MEDS: ATORVASTATIN 20 MG TABLET PO SCH (10:38)
[2020-02-07] MEDS: MULTIVITAMINS/MINERALS TABLET PO SCH (10:39)
[2020-02-07] MEDS: ASPIRIN 81 MG TABLET EC PO SCH ×2 (10:39→23:37)
[2020-02-07] MEDS: CEFTRIAXONE PMX 1GM/50ML 50 ML IV SCH (11:25)
[2020-02-07] MEDS: VANCOMYCIN 50 MG/ML ORAL SUSP PO SCH ×3 (11:25→23:38)
[2020-02-07] MEDS: DOXYCYCLINE 100MG TABLET PO SCH ×2 (11:25→23:37)
[2020-02-07] MEDS: SODIUM CHLORIDE 0.9% 1,000 ML IV SCH ×2 (14:12→23:39)
[2020-02-07 14:33] LABS: CLOSTRIDIUM DIFFICILE ANTIGEN POSITIVE; CLOSTRIDIUM DIFFICILE TOXIN NEGATIVE (Negative)
[2020-02-07 14:46] LABS: MICROSCOPIC INDICATED
[2020-02-07 19:22] VITALS: BP 148/94
[2020-02-07 20:46] VITALS: BP 124/76
[2020-02-07] MEDS: OXYcodone 5 MG/5 ML ORAL.SOL UDC PO PRN (23:41)
[2020-02-08 04:52] VITALS: BP 120/70
[2020-02-08] MEDS: VANCOMYCIN 50 MG/ML ORAL SUSP PO SCH (05:14)
[2020-02-08 07:19] LABS: ANION GAP 9 mmol/L (5-15); CALCIUM 7.6 mg/dL (8.5-10.1); CHLORIDE 101 mmol/L (98-107); CREATININE 1.22 mg/dL (0.7-1.3)
[2020-02-08] MEDS: DOCUSATE 100 MG CAPSULE PO SCH ×2 (07:37→21:00)
[2020-02-08 07:46] LABS: MEAN CORPUSCULAR HEMOGLOBIN 30.8 pg (27.5-34.5); MEAN CORPUSCULAR HGB CONC 32.4 g/dL (33.2-36.2); MEAN PLATELET VOLUME 7.8 fL (7.4-10.4); PLATELET COUNT 223 x10^3/uL (130-400); RED BLOOD COUNT 3.75 x10^6/uL (4.38-5.82); RED CELL DISTRIBUTION WIDTH 12.8 % (9.4-14.8)
[2020-02-08] MEDS: OXYcodone 5 MG/5 ML ORAL.SOL UDC PO PRN ×3 (07:54→16:48)
[2020-02-08] MEDS: INSULIN LISPRO 100 UNITS/ML, PEN SQ-INSULIN SCH ×4 (07:55→23:09)
[2020-02-08] MEDS: SODIUM CHLORIDE FLUSH 10ML SYR IVF SCH ×4 (07:55→21:00)
[2020-02-08] MEDS: TEMPLATE NON-FORMULARY MED. (Empagliflozin (Jardiance) 10 MG) PO SCH (07:56)
[2020-02-08] MEDS: SENNA/DOCUSATE TABLET PO SCH (07:56)
[2020-02-08 07:58] VITALS: BP 131/82
[2020-02-08 08:09] LABS: MD YES
[2020-02-08 08:12] LABS: BAND#(MANUAL) 0.65 x10^3/uL; BANDS%(MANUAL) 8 % (0-7); EOS#(MANUAL) 0.08 x10^3/uL (0.0-0.4); EOS% (MANUAL) 1 % (1-7); LYMPH#(MANUAL) 0.24 x10^3/uL (1-3.4); LYMPHS% (MANUAL) 3 % (22-44); MONOS#(MANUAL) 0.08 x10^3/uL (0.3-2.7); MONOS% (MANUAL) 1 % (2-9); SEG#(MANUAL) 7.05 x10^3/uL (1.8-6.8); SEGS% (MANUAL) 87 % (42-75)
[2020-02-08 08:13] LABS: POLYCHROMASIA 1+
[2020-02-08 08:14] LABS: <PLATELET ESTIMATE> ADEQUATE; <PLT MORPHOLOGY> NORMAL PLT MORPH
[2020-02-08] MEDS: DOXYCYCLINE 100MG TABLET PO SCH ×2 (09:07→23:00)
[2020-02-08] MEDS: GABAPENTIN 100 MG CAPSULE PO SCH ×2 (09:07→23:00)
[2020-02-08] MEDS: MULTIVITAMINS/MINERALS TABLET PO SCH (09:07)
[2020-02-08] MEDS: LOPERAMIDE 2 MG CAPSULE PO SCH ×3 (09:07→23:00)
[2020-02-08] MEDS: ASPIRIN 81 MG TABLET EC PO SCH ×2 (09:07→23:00)
[2020-02-08] MEDS: ACETAMINOPHEN 325 MG TABLET PO SCH ×3 (09:07→23:00)
[2020-02-08] MEDS: ATORVASTATIN 20 MG TABLET PO SCH (09:07)
[2020-02-08] MEDS: GLIMEPIRIDE 4 MG TABLET PO SCH ×3 (09:07→23:00)
[2020-02-08] MEDS: CEFTRIAXONE PMX 1GM/50ML 50 ML IV SCH (11:05)
[2020-02-08 12:46] VITALS: BP 128/81
[2020-02-08 20:41] VITALS: BP 130/74
[2020-02-08] MEDS ORDERED: INSULIN GLARGINE 100 UNITS/ML, PEN SQ-INSULIN SCH (21:00)
[2020-02-08] MEDS: morphine SULFATE 10 MG/ML, 1ML IVPush PRN (22:43)
[2020-02-09] MEDS: OXYcodone 5 MG/5 ML ORAL.SOL UDC PO PRN (04:00)
[2020-02-09 04:05] VITALS: BP 124/76
[2020-02-09 06:45] VITALS: BP 121/88
[2020-02-09] MEDS: SODIUM CHLORIDE FLUSH 10ML SYR IVF SCH ×2 (07:17→08:35)
[2020-02-09] MEDS: DOCUSATE 100 MG CAPSULE PO SCH (07:18)
[2020-02-09] MEDS: TEMPLATE NON-FORMULARY MED. (Empagliflozin (Jardiance) 10 MG) PO SCH (07:18)
[2020-02-09] MEDS: INSULIN LISPRO 100 UNITS/ML, PEN SQ-INSULIN SCH ×2 (08:34→11:00)
[2020-02-09] MEDS: MULTIVITAMINS/MINERALS TABLET PO SCH (08:34)
[2020-02-09] MEDS: DOXYCYCLINE 100MG TABLET PO SCH (08:34)
[2020-02-09] MEDS: ATORVASTATIN 20 MG TABLET PO SCH (08:34)
[2020-02-09] MEDS: GABAPENTIN 100 MG CAPSULE PO SCH (08:34)
[2020-02-09] MEDS: ASPIRIN 81 MG TABLET EC PO SCH (08:34)
[2020-02-09] MEDS: ACETAMINOPHEN 325 MG TABLET PO SCH (08:34)
[2020-02-09] MEDS: GLIMEPIRIDE 4 MG TABLET PO SCH (08:34)
[2020-02-09] MEDS: LOPERAMIDE 2 MG CAPSULE PO SCH (08:34)
[2020-02-09] MEDS: SENNA/DOCUSATE TABLET PO SCH (08:35)
[2020-02-09] MEDS ORDERED: INSULIN GLARGINE 100 UNITS/ML, PEN SQ-INSULIN SCH (09:00)
[2020-02-09] MEDS ORDERED: ONDANSETRON 2MG/ML, 2ML ONE (10:22)
[2020-02-09] MEDS ORDERED: METOCLOPRAMIDE 5 MG/ML, 2ML ONE (10:22)
[2020-02-09] MEDS: CEFTRIAXONE PMX 1GM/50ML 50 ML IV SCH (10:26)
[2020-02-09] MEDS ORDERED: METOCLOPRAMIDE 5 MG/ML, 2ML IVPush PRN (10:30)
[2020-02-09] MEDS ORDERED: ONDANSETRON 2MG/ML, 2ML IVPush PRN (10:30)
[2020-02-09] MEDS ORDERED: OXYC5SOL8 PO (11:16)
[2020-02-09] MEDS ORDERED: ASPI-496 PO (11:16)
[2020-02-09] MEDS ORDERED: CEFD300C37 PO (11:16)
[2020-02-09] MEDS ORDERED: INSU100I13 SQ-INSULIN (11:16)
[2020-02-09] MEDS ORDERED: DOCU100C33 PO (11:16)
[2020-02-09 12:13] VITALS: BP 131/88
== END 2020-02-09 12:35 | DRG 469 ==
LOC: ED 18:22 → EDIP 19:02 → 4NW 20:27 → 4NE 02-05 18:01
PROVIDERS: ADMIT Family Medicine; ATTEND Hospitalist
PROC: 0SRR0J9 Replacement of Right Hip Joint, Femoral Surface with Synthetic Substitute, Cemented, Open Approach (ICD-10-PCS; principal; 2020-02-05 14:00)
DX: S72.011A Unspecified intracapsular fracture of right femur, initial encounter for closed fracture (principal); A41.9 Sepsis, unspecified organism; J18.9 Pneumonia, unspecified organism; E87.2 Acidosis; K51.90 Ulcerative colitis, unspecified, without complications; E11.9 Type 2 diabetes mellitus without complications; I11.9 Hypertensive heart disease without heart failure; R19.7 Diarrhea, unspecified; S09.90XA Unspecified injury of head, initial encounter; D72.829 Elevated white blood cell count, unspecified; Z20.828 Contact with and (suspected) exposure to other viral communicable diseases; W18.30XA Fall on same level, unspecified, initial encounter; Z86.011 Personal history of benign neoplasm of the brain; Z86.61 Personal history of infections of the central nervous system; Z87.891 Personal history of nicotine dependence; Z90.49 Acquired absence of other specified parts of digestive tract; Y93.89 Activity, other specified; Y92.009 Unspecified place in unspecified non-institutional (private) residence as the place of occurrence of the external cause; Y99.0 Civilian activity done for income or pay; Z88.2 Allergy status to sulfonamides; Z79.82 Long term (current) use of aspirin; Z79.84 Long term (current) use of oral hypoglycemic drugs
CPT/HCPCS: 36415; 70450; 71045; 72125; 72170; 80048; 80053; 81001; 82040; 82962; 83605; 84145; 85014; 85018; 85025; 87040; 87324; 87635; 93005; C1713; G0378; J0690; J0696; J1100; J2405; J2704; J3010; J3370; Q0162; C1762; C1776; J0330; J1815; J2270; J2370; J2765; J7030; J7121